=== PATIENT | female | born 1965 | race Caucasian/White ===

== ENCOUNTER 2025-01-25 07:36 | Observation (INO) | payer OTHER, SELFPAY ==
[2025-01-25] VITALS (45 sets, daily range): BP systolic 88–143; BP diastolic 45–71; PULSE 60–83; RESP 12–34; TEMP 36.1–37.1; O2SAT 95–100; BMI 23.6
--- NOTE | 2025-01-25 07:46 | EKG_ITS ---
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
--- NOTE | 2025-01-25 08:01 | ED.ARRPALP ---
HPI - Arrhythmia/Palpitations General Chief Complaint: Arrhythmia/Palpitations Stated Complaint: chest pain, AFIB X 10 days Time Seen by Provider: 01/25/25 07:47 History of Present Illness HPI narrative: 59-year-old female with a history of paroxysmal atrial fibrillation, adrenal insufficiency on hydrocortisone, factor 5 Leiden anticoagulated on Xarelto presenting with numerous symptoms. She reports chest pain that has been intermittent for 10 days. Currently having what she describes as an ache in her chest that has been ongoing for about 7 hours. It is associated with shortness of breath and nausea she has not had any vomiting has not had diaphoresis. Also had palpitations. Also reports this morning she had a fever of 100.8. Not having urinary symptoms has chronic ongoing lower abdominal pain no dysuria. She was seen recently at another hospital and diagnosed with atrial fibrillation, she spontaneously converted at that time. Had not noted any leg swelling or leg pain but does have a history of leg DVT. Patient states she is not a smoker. There is no family history of coronary disease. Has a history of hypertension diabetes and elevated cholesterol all of which have apparently resolved. Related Data Home Medications ?Medication ?Instructions ?Recorded ?Confirmed atorvastatin 40 mg tablet 40 mg PO DAILY 01/25/25 01/25/25 budesonide-formoterol HFA 160 2 puff inhalation BID 01/25/25 01/25/25 mcg-4.5 mcg/actuation aerosol inhaler hydrocortisone 5 mg tablet 5 mg PO .QD [place] 01/25/25 01/25/25 hydrocortisone 5 mg tablet 20 mg PO DAILY [place] 01/25/25 01/25/25 metoprolol tartrate 25 mg tablet 25 mg PO DAILY 01/25/25 01/25/25 mirtazapine 7.5 mg tablet 7.5 mg PO ONCE PM 01/25/25 01/25/25 rivaroxaban 20 mg tablet (Xarelto) 20 mg PO DAILY 01/25/25 01/25/25 Allergies Allergy/AdvReac Type Severity Reaction Status Date / Time metronidazole (From Flagyl) Allergy Verified 01/25/25 07:47 Patient History Social History household members: spouse Smoking Status: Never smoker alcohol intake: never Exam Initial Vital Signs Initial Vital Signs: Vital Signs Pulse Rate 74 01/25/25 07:43 Pulse Oximetry 100 01/25/25 07:43 vital signs are reviewed Const General: cooperative and No acute distress HENAZ Head: normocephalic and atraumatic Face and sinus: face symmetric Mouth: moist mucous membranes Eyes Pupils: PERRL EOM: EOM intact bilaterally Neck Neck: normal visual inspection, supple and No JVD Chest Chest: normal inspection of the chest Resp Effort & Inspection: normal respiratory effort and able to speak in complete sentences Auscultation: clear to auscultation bilaterally Cardio Rate: regular rate Rhythm: regular rhythm Heart Sounds: no murmurs Other: Normal heart rate GI Inspection: normal to inspection Palpation: soft Auscultation: normal bowel sounds Back/Spine/Pelvis Back: normal to inspection Skin General: no rashes or lesions noted and warm Neuro General: patient alert, patient oriented x3 and moves all extremities Speech: speech normal Extrem General: full ROM Psych Appearance: grossly normal Course Orders Ordered: ED Orders 01/25/25 10:07 Trop I [Troponin I] Stat Acetaminophen (Acetaminophen 325 Mg Tablet) 650 mg PO Q6H PRN PRN Reason: Fever/Mild Pain (1-3) Last Admin: 01/25/25 16:59 Dose: 650 mg Documented By: RICHIE Hydrocodone Bitart/Acetaminophen (Hydrocodone/Acet 5/325 Tablet) 1 tab PO Q6H PRN PRN Reason: severe pain Albuterol (Albuterol 2.5 Mg/3 Ml Neb (Adult)) 2.5 mg INH Q2H PRN PRN Reason: Shortness Of Breath Albuterol (Albuterol 2.5 Mg/3 Ml Neb (Adult)) 2.5 mg INH [id number] [facility] Atorvastatin Calcium (Atorvastatin 20 Mg Tablet) 40 mg PO DAILY [facility] Last Admin: 01/25/25 14:42 Dose: 40 mg Documented By: BOY Benzocaine (Benzocaine/Menthol 1 Carmelina Pkt) 1 each PO Q4HR PRN PRN Reason: Sore Throat Benzonatate (Benzonatate 100 Mg Capsule) 100 mg PO TID PRN PRN Reason: Cough Budesonide (Budesonide 0.5 Mg/2 Ml Neb) 0.5 mg INH RTBID [facility] Diltiazem HCl (Diltiazem 30 Mg Tablet) 30 mg PO Q6HR [facility] Last Admin: 01/25/25 17:02 Dose: 30 mg Documented By: RICHIE Ferrous Sulfate (Ferrous Sulfate 325 Mg Tablet) 325 mg PO DAILY [facility] Guaifenesin (Guaifenesin Solution 100 Mg/5 Ml Udc) 100 mg PO Q4HR PRN PRN Reason: Cough Hydrocortisone (Hydrocortisone 10 Mg Tablet) 5 mg PO DAILY@1400 [facility] Last Admin: 01/25/25 14:42 Dose: 5 mg Documented By: BOY Hydrocortisone (Hydrocortisone 10 Mg Tablet) 20 mg PO DAILY [facility] Sodium Chloride (Normal Saline 0.9%) 1,000 mls @ 150 mls/hr IV CONT [facility] Last Infusion: 01/25/25 10:22 Dose: Infused Documented By: Admin: 01/25/25 08:49 Dose: 150 mls/hr Documented By: GAYE Melatonin (Melatonin 3 Mg Tablet) 12 mg PO BEDTIME SHERON Mirtazapine (Mirtazapine 15 Mg Tablet) 7.5 mg PO BEDTIME SHERON Naloxone HCl (Naloxone 0.4 Mg/Ml Vial) 0.2 mg IV Q2MIN PRN PRN Reason: Opiate Reversal Nitroglycerin (Nitroglycerin 0.4 Mg Sl Tab) 0.4 mg SL [id number] PRN PRN Reason: Chest Pain Last Admin: 01/25/25 09:05 Dose: 0.4 mg Documented By: Admin: 01/25/25 08:49 Dose: 0.4 mg Documented By: GAYE Ondansetron HCl (Ondansetron 4 Mg/2 Ml Inj) 4 mg IV Q8HR PRN PRN Reason: Nausea And Vomiting Rivaroxaban (Rivaroxaban 10 Mg Tablet) 20 mg PO DAILY [facility] Last Admin: 01/25/25 15:06 Dose: Not Given Documented By: AKT Discontinued Medications Albuterol (Albuterol 2.5 Mg/3 Ml Neb (Adult)) 2.5 mg INH [id number] [facility] Last Admin: 01/25/25 17:15 Dose: Not Given Documented By: STALIN Diazepam (Diazepam 5 Mg Tablet) 10 mg PO DAILY SHERON Diltiazem HCl (Diltiazem 30 Mg Tablet) 30 mg PO Q6HR [facility] Last Admin: 01/25/25 17:02 Dose: Not Given Documented By: RICHIE Heparin Sodium (Porcine) (Heparin 5,000 Unit/Ml Vial) 5,000 unit SUBCUT BID [facility] Metoprolol Tartrate (Metoprolol Ir 25 Mg Tablet) 25 mg PO DAILY [facility] Last Admin: 01/25/25 16:57 Dose: Not Given Documented By: RICHIE Metoprolol Tartrate (Metoprolol Ir 25 Mg Tablet) 12.5 mg PO BID [facility] Nitroglycerin (Nitroglycerin Oint 1 Inch/Gm Oint...G.) 0.5 inch TOP NOW ONE Stop: 01/25/25 11:29 Last Admin: 01/25/25 11:59 Dose: 0.5 inch Documented By: JOSE Oxybutynin Chloride (Oxybutynin Er 5 Mg Tablet) 10 mg PO DAILY PRN PRN Reason: urinary Reevaluation(s) Reevaluation #1: Pain-free after nitroglycerin. Discussed workup results including positive COVID normal troponin x2. Patient reports that she has been having chest pain with exertion. Shared decision-making employed she would prefer to be admitted and further worked up as an inpatient. Consultations Consultation #1: Discussed with hospitalist, Dr. Posada, accepts admission Vital Signs Vital signs: Vital Signs - 8 hr 01/25/25 10:20 01/25/25 10:20 01/25/25 10:30 Temperature Pulse Rate 65 64 Respiratory Rate 13 14 Blood Pressure 97/55 L Pulse Oximetry 97 96 01/25/25 10:30 01/25/25 10:40 01/25/25 10:40 Temperature Pulse Rate 64 Respiratory Rate 16 Blood Pressure 90/51 L 95/50 L Pulse Oximetry 96 01/25/25 10:50 01/25/25 10:50 01/25/25 11:00 Temperature Pulse Rate 66 Respiratory Rate 13 Blood Pressure 98/54 L 94/50 L Pulse Oximetry 96 01/25/25 11:00 01/25/25 11:15 01/25/25 11:15 Temperature Pulse Rate 70 73 Respiratory Rate 13 16 Blood Pressure 114/60 Pulse Oximetry 97 100 01/25/25 11:20 01/25/25 11:20 01/25/25 11:30 Temperature Pulse Rate 75 Respiratory Rate 14 Blood Pressure 111/61 103/59 L Pulse Oximetry 99 01/25/25 11:30 01/25/25 11:40 01/25/25 11:40 Temperature Pulse Rate 71 70 Respiratory Rate 16 Blood Pressure 104/57 L Pulse Oximetry 98 98 01/25/25 11:50 01/25/25 11:50 01/25/25 11:59 Temperature 98.4 F Pulse Rate 71 72 Respiratory Rate Blood Pressure 97/56 L 97/56 L Pulse Oximetry 98 01/25/25 12:00 01/25/25 12:00 01/25/25 12:10 Temperature Pulse Rate 72 Respiratory Rate 14 Blood Pressure 100/56 L 105/59 L Pulse Oximetry 99 01/25/25 12:10 01/25/25 12:20 01/25/25 12:20 Temperature Pulse Rate 74 75 Respiratory Rate 18 Blood Pressure 103/56 L Pulse Oximetry 98 97 01/25/25 12:30 01/25/25 12:30 01/25/25 12:40 Temperature Pulse Rate 75 Respiratory Rate Blood Pressure 99/56 L 98/56 L Pulse Oximetry 97 01/25/25 12:40 Temperature Pulse Rate 81 Respiratory Rate 16 Blood Pressure Pulse Oximetry 97 MDM - Arrhythmia/Palpitations Lab Data Lab results narrative: No leukocytosis, chemistries unremarkable, normal troponin normal proBNP 01/25/25 08:00 01/25/25 08:00 Labs: Lab Results 01/25/25 01/25/25 01/25/25 Range/Units 08:00 08:21 08:45 WBC 5.7 (4.5-11.0) X10^3/uL RBC 4.02 (4.0-5.2) X10^6/uL Hgb 11.8 L (12.0-16.0) g/dL Hct 34.3 L (36-46) % MCV 85.2 (80-100) fL MCH 29.4 (26-34) PG MCHC 34.4 (30-36) % RDW 13.0 (11.6-14.8) % Plt Count 215 (150-400) X10^3/uL Neut % (Auto) 80.3 H (50-75) % Lymph % (Auto) 10.2 L (25-40) % Garrett % (Auto) 8.5 (3-14) % Eos % (Auto) 0.7 L (2-4) % Baso % (Auto) 0.3 (0-2) % Neut # (Auto) 4600 (1827-7851) /uL Lymph # (Auto) 600 L (0888-1578) /uL Garrett # (Auto) 500 (0-900) /uL Eos # (Auto) 0 (0-450) /uL Baso # (Auto) 0 (0-100) /uL Sodium 139 (137-145) mmol/L Potassium 3.8 (3.4-5.1) mmol/L Chloride 107 (98-107) mmol/L Carbon Dioxide 23 (22-32) mmol/L BUN 16 (7-17) mg/dL Creatinine 0.70 (0.52-1.04) mg/dL Estimated GFR > 60 (>60) mL/min BUN/Creatinine Ratio 22.9 H (6-22) Glucose 119 H (70-99) mg/dL Calcium 8.9 (8.4-10.2) mg/dL Total Bilirubin 0.4 (0.2-1.3) mg/dL AST 43 H (14-36) IU/L ALT 37 H (<35) IU/L Alkaline Phosphatase 78 (38-126) U/L Troponin I < 0.012 (0.01-0.034) ng/mL NT-Pro-B Natriuret Pep 28 (<125) pg/mL Total Protein 7.3 (6.3-8.2) g/dL Albumin 4.3 (3.5-5.0) g/dL Globulin 3.0 (1.7-4.1) g/dL Albumin/Globulin Ratio 1.4 (1.0-2.8) Lipase 74 (23-300) U/L Urine Color Yellow Urine Appearance Clear Urine pH 6.0 (4.5-8.0) Ur Specific Buna <=1.005 (1.000-1.035) Urine Protein Negative (Negative) Urine Glucose (UA) Negative (Negative) g/dL Urine Ketones Negative (NEGATIVE) Urine Occult Blood Negative (Negative) Urine Nitrate Negative (Negative) Urine Bilirubin Negative (NEGATIVE) Urine Urobilinogen 0.2 (0.2) E.U./dL Ur Leukocyte Esterase Negative (NEGATIVE) Urine RBC None seen (0-5/HPF) Urine WBC None seen (0-5/HPF) Ur Squamous Epith Cells None seen (0-5/HPF) Urine Bacteria None seen (None) Ur Culture Indicated? Cult not indicated Vol Urine Centrifuged 10ml (spun) Chlamy pneumoniae PCR Not detected (Not Detect) Adenovirus (PCR) Not detected (Not Detect) B. pertussis DNA (PCR) Not detected (Not Detect) B.parapertussis DNA PCR Not detected (Not Detecte) Coronavirus OC43 (PCR) Not detected (Not Detect) Coronavirus HKU1 (PCR) Not detected (Not Detect) Coronavirus 229E (PCR) Not detected (Not Detect) SARS-CoV-2 (PCR) Detected H (Not Detecte) Coronavirus NL63 (PCR) Not detected (Not Detect) Human Metapneumovir PCR Not detected (Not Detect) Influenza Type A (PCR) Not detected (Not Detect) Influenza Type B (PCR) Not detected (Not Detect) M. pneumoniae (PCR) Not detected (Not Detect) Parainfluenza 1 (PCR) Not detected (Not Detect) Parainfluenza 2 (PCR) Not detected (Not Detect) Parainfluenza 3 (PCR) Not detected (Not Detect) Parainfluenza 4 (PCR) Not detected (Not Detect) RSV (PCR) Not detected (Not Detect) Entero/Rhino (PCR) Not detected (Not Detect) 01/25/25 Range/Units 10:07 WBC (4.5-11.0) X10^3/uL RBC (4.0-5.2) X10^6/uL Hgb (12.0-16.0) g/dL Hct (36-46) % MCV (80-100) fL MCH (26-34) PG MCHC (30-36) % RDW (11.6-14.8) % Plt Count (150-400) X10^3/uL Neut % (Auto) (50-75) % Lymph % (Auto) (25-40) % Garrett % (Auto) (3-14) % Eos % (Auto) (2-4) % Baso % (Auto) (0-2) % Neut # (Auto) (9758-7288) /uL Lymph # (Auto) (6127-7975) /uL Garrett # (Auto) (0-900) /uL Eos # (Auto) (0-450) /uL Baso # (Auto) (0-100) /uL Sodium (137-145) mmol/L Potassium (3.4-5.1) mmol/L Chloride (98-107) mmol/L Carbon Dioxide (22-32) mmol/L BUN (7-17) mg/dL Creatinine (0.52-1.04) mg/dL Estimated GFR (>60) mL/min BUN/Creatinine Ratio (6-22) Glucose (70-99) mg/dL Calcium (8.4-10.2) mg/dL Total Bilirubin (0.2-1.3) mg/dL AST (14-36) IU/L ALT (<35) IU/L Alkaline Phosphatase (38-126) U/L Troponin I < 0.012 (0.01-0.034) ng/mL NT-Pro-B Natriuret Pep (<125) pg/mL Total Protein (6.3-8.2) g/dL Albumin (3.5-5.0) g/dL Globulin (1.7-4.1) g/dL Albumin/Globulin Ratio (1.0-2.8) Lipase (23-300) U/L Urine Color Urine Appearance Urine pH (4.5-8.0) Ur Specific Buna (1.000-1.035) Urine Protein (Negative) Urine Glucose (UA) (Negative) g/dL Urine Ketones (NEGATIVE) Urine Occult Blood (Negative) Urine Nitrate (Negative) Urine Bilirubin (NEGATIVE) Urine Urobilinogen (0.2) E.U./dL Ur Leukocyte Esterase (NEGATIVE) Urine RBC (0-5/HPF) Urine WBC (0-5/HPF) Ur Squamous Epith Cells (0-5/HPF) Urine Bacteria (None) Ur Culture Indicated? Vol Urine Centrifuged Chlamy pneumoniae PCR (Not Detect) Adenovirus (PCR) (Not Detect) B. pertussis DNA (PCR) (Not Detect) B.parapertussis DNA PCR (Not Detecte) Coronavirus OC43 (PCR) (Not Detect) Coronavirus HKU1 (PCR) (Not Detect) Coronavirus 229E (PCR) (Not Detect) SARS-CoV-2 (PCR) (Not Detecte) Coronavirus NL63 (PCR) (Not Detect) Human Metapneumovir PCR (Not Detect) Influenza Type A (PCR) (Not Detect) Influenza Type B (PCR) (Not Detect) M. pneumoniae (PCR) (Not Detect) Parainfluenza 1 (PCR) (Not Detect) Parainfluenza 2 (PCR) (Not Detect) Parainfluenza 3 (PCR) (Not Detect) Parainfluenza 4 (PCR) (Not Detect) RSV (PCR) (Not Detect) Entero/Rhino (PCR) (Not Detect) Imaging Data CT scan - chest: My Impression: Independently reviewed CT angio chest, no acute findings Radiologist's Impresson: [address] [address] [address] Scan Report Signed Patient: Magda Sykes MR#: [id number] : 1965 Acct:[id number] Age/Sex: 59 / F Date of Service: 01/25/25 Loc: ED Accession Number: [id number] Procedure: CT angio chest PE protocol Ordering Provider: Chris Kent MD PROCEDURE: CT ANGIO CHEST PE PROTOCOL INDICATIONS: chest pain TECHNIQUE: After the administration of intravenous contrast, 2 mm thick sections acquired from the pulmonary apices to the posterior costophrenic angles. 3-dimensional maximum intensity projection (MIP) coronal and sagittal reformats were then acquired through the thorax. For radiation dose reduction, the following was used: automated exposure control, adjustment of mA and/or kV according to patient size. COMPARISON: None. FINDINGS: Image quality: Diagnostic. Pulmonary arteries: Pulmonary arteries are normal in size, and demonstrate no intraluminal filling defects to suggest central pulmonary embolism. Lower Neck: No enlarged lymph nodes. Thyroid: No thyroid nodules which require sonographic follow up, per consensus guidelines. Axillae: No enlarged lymph nodes. Chest Wall: Unremarkable. Bones: Unremarkable. Lungs and Pleura: No pneumothorax or pleural effusions. Calcified granuloma. Pleural parenchymal band in the lingula. Heart: Heart size is normal. No pericardial effusion. Thoracic Vessels: No aortic aneurysm. Mediastinum and Carlie: No enlarged lymph nodes. Esophagus: No wall thickening. No hiatal hernia. Upper Abdomen: Visualized upper abdomen solid organs and bowel loops appear normal. IMPRESSION: No pulmonary embolus. No acute cardiopulmonary process. Dictated by: Chacho Guzman M.D. on 01/25/2025 at 8:47 Approved by: Chacho Guzman M.D. on 01/25/2025 at 8:48 ECG Data Attestation: I personally reviewed and interpreted this ECG as follows: (Normal sinus rhythm at [address] segment changes no previous infarction normal intervals) MDM Narrative Medical decision making narrative: 59-year-old female with factor 5 Leiden history of thromboembolic disease presenting with chest pain. She is not febrile, does not have ischemic EKG changes and has a normal troponin. Has been having multiple episodes of chest pain recently. CT angio is negative for pulmonary embolism or infiltrate. Heart score is 3, however given her recurrent chest pain it was my impression that it would be wiser to hospitalize her. Additionally she did have resolution of her chest pain with nitrates. She will be admitted to the hospitalist service. Discharge Plan Departure Patient Disposition: Admitted as Observation Clinical Impression: COVID-19 virus infection Chest pain Qualifiers: Chest pain type: unspecified Qualified Code(s): R07.9 - Chest pain, unspecified Admit Date/Time: 01/25/25 12:47 Admit Provider: Mateo Douglas
[2025-01-25 08:12] LABS: Add Manual Diff / Slide Review NO; Hematocrit 34.3 % (36-46); Hemoglobin 11.8 g/dL (12.0-16.0); Lymphocytes Absolute Auto 600 /uL (1100-4500); Mean Corpuscular HGB Conc 34.4 % (30-36); Mean Corpuscular Hemoglobin 29.4 PG (26-34); Mean Corpuscular Volume 85.2 fL (80-100); Platelet Count 215 X10^3/uL (150-400)
[2025-01-25 08:25] LABS: Alanine Aminotransferase 37 IU/L (<35); Albumin 4.3 g/dL (3.5-5.0); Albumin Globulin Ratio 1.4 (1.0-2.8); Alkaline Phosphatase 78 U/L (38-126); Blood Urea Nitrogen 16 mg/dL (7-17); Calcium 8.9 mg/dL (8.4-10.2); Carbon Dioxide 23 mmol/L (22-32); Chloride 107 mmol/L (98-107); Estimated Glomerular Filt Rate > 60 mL/min (>60); Globulin 3.0 g/dL (1.7-4.1); Glucose 119 mg/dL (70-99); HEMOLYSIS < 15 (0-50); Lipase 74 U/L (23-300); Potassium 3.8 mmol/L (3.4-5.1); Sodium 139 mmol/L (137-145); Total Protein 7.3 g/dL (6.3-8.2)
[2025-01-25 08:34] LABS: NT-proBNP (BNP-Adult 18+) 28 pg/mL (<125)
[2025-01-25 08:36] LABS: Troponin I < 0.012 ng/mL (0.01-0.034)
[2025-01-25] MEDS: SODIUM CHLORIDE 0.9% 1,000 ML 150 ML IV (08:49)
[2025-01-25] MEDS: NITROGLYCERIN 0.4 MG SL TAB SL ×2 (08:49→09:05)
--- NOTE | 2025-01-25 09:27 | PC.NURSE ---
Patient reports pain in left chest dissipated to a 0/10 after second dose of nitro.
[2025-01-25 09:46] LABS: Coronavirus NL 63 Not Detected (Not Detect)
[2025-01-25 10:07] LABS: SARS- CoV-2 Detected (Not Detecte)
[2025-01-25 10:38] LABS: Appearance Urine UA CLEAR; Bilirubin Urine UA NEGATIVE (NEGATIVE); Color Urine UA YELLOW; Glucose Urine UA NEGATIVE (Negative); Ketones Urine UA NEGATIVE (NEGATIVE); Leukocyte Esterase Urine UA NEGATIVE (NEGATIVE); Nitrite Urine UA NEGATIVE (Negative); Occult Blood Urine UA NEGATIVE (Negative); Protein Urine UA NEGATIVE (Negative); Specific Gravity Urine UA <=1.005 (1.000-1.035); Urobilinogen Urine UA 0.2 E.U./dL (0.2)
[2025-01-25 10:42] LABS: pH Urine UA 6.0 (4.5-8.0)
[2025-01-25 10:44] LABS: Culture Indicated Urine Cult Not Indicated
[2025-01-25 10:51] LABS: Troponin I < 0.012 ng/mL (0.01-0.034)
[2025-01-25] MEDS: NITROGLYCERIN OINT 1 INCH/GM OINT...G. 0.5 INCH TOP (11:59)
--- NOTE | 2025-01-25 13:52 | PM.HP.1 ---
History of Present Illness History of Present Illness Date Patient Seen: 01/25/25 Time Patient Seen: 14:30 Chief complaint: chest pain, AFIB X 10 days Narrative: Patient was a 59-year-old female with a recent diagnosis of atrial fibrillation. She was on long-term anticoagulation for factor 5. She was had palpitations, fatigue, and dyspnea with exertion for the last 10 days. She was started on metoprolol 25 b.i.d. but has not tolerated this medication very well. This is caused more fatigue. She did have some nondescript left chest discomfort at rest today. She was given nitroglycerin which may have improve this in the ED. She did have fairly extensive cardiac evaluation before moving from [place] 2 years ago. This included normal stress test. She does have a 1st time cardiology evaluation scheduled with [facility] in [place]. This is with Dr. Leonardo Mcguire. In the ED, she was found to have atrial fibrillation. She was not had an echo to date. She was and lives near [place] with her . He was in the room and participated in our discussion today. [facility] Social History household members: spouse Smoking Status: Never smoker alcohol intake: never Meds Home Medications and Allergies Home Medications ?Medication ?Instructions ?Recorded ?Confirmed ?Type atorvastatin 40 mg tablet 40 mg PO DAILY 01/25/25 01/25/25 History budesonide-formoterol HFA 160 2 puff inhalation BID 01/25/25 01/25/25 History mcg-4.5 mcg/actuation aerosol inhaler hydrocortisone 5 mg tablet 5 mg PO .QD [facility] 01/25/25 01/25/25 History hydrocortisone 5 mg tablet 20 mg PO DAILY [facility] 01/25/25 01/25/25 History metoprolol tartrate 25 mg tablet 25 mg PO DAILY 01/25/25 01/25/25 History mirtazapine 7.5 mg tablet 7.5 mg PO ONCE PM 01/25/25 01/25/25 History rivaroxaban 20 mg tablet (Xarelto) 20 mg PO DAILY 01/25/25 01/25/25 History Allergies Allergy/AdvReac Type Severity Reaction Status Date / Time metronidazole (From Flagyl) Allergy Verified 01/25/25 07:47 Review of Systems Review of Systems Narrative: All else reviewed and otherwise unremarkable except as noted in the history and physical. Exam Vital Signs (past 8 hours): - 01/25/25 07:43 01/25/25 07:44 01/25/25 07:44 Temperature Pulse Rate 74 71 Respiratory Rate Blood Pressure 129/71 Pulse Oximetry 100 99 Oxygen Delivery Method 01/25/25 07:46 01/25/25 08:00 01/25/25 08:06 Temperature 98.5 F Pulse Rate 68 74 71 Respiratory Rate 16 23 25 H Blood Pressure 143/70 H Pulse Oximetry 98 98 99 Oxygen Delivery Method Room Air 01/25/25 08:06 01/25/25 08:30 01/25/25 08:30 Temperature Pulse Rate 67 Respiratory Rate 21 Blood Pressure 126/67 106/59 L Pulse Oximetry 98 Oxygen Delivery Method 01/25/25 08:49 01/25/25 08:56 01/25/25 08:56 Temperature Pulse Rate 78 79 Respiratory Rate 23 Blood Pressure 106/67 111/60 Pulse Oximetry 97 Oxygen Delivery Method 01/25/25 08:59 01/25/25 08:59 01/25/25 09:00 Temperature Pulse Rate 78 76 Respiratory Rate 27 H 21 Blood Pressure 103/57 L Pulse Oximetry 95 95 Oxygen Delivery Method 01/25/25 09:00 01/25/25 09:05 01/25/25 09:06 Temperature Pulse Rate 78 Respiratory Rate Blood Pressure 101/56 L 101/56 L 109/58 L Pulse Oximetry Oxygen Delivery Method 01/25/25 09:06 01/25/25 09:10 01/25/25 09:10 Temperature Pulse Rate 83 78 Respiratory Rate 25 H 12 Blood Pressure 90/54 L Pulse Oximetry 95 95 Oxygen Delivery Method 01/25/25 09:12 01/25/25 09:12 01/25/25 09:13 Temperature Pulse Rate 76 74 Respiratory Rate 20 25 H Blood Pressure 93/52 L Pulse Oximetry 96 96 Oxygen Delivery Method 01/25/25 09:13 01/25/25 09:15 01/25/25 09:15 Temperature Pulse Rate 73 Respiratory Rate 34 H Blood Pressure 91/55 L 88/50 L Pulse Oximetry 96 Oxygen Delivery Method 01/25/25 09:18 01/25/25 09:18 01/25/25 09:20 Temperature Pulse Rate 71 Respiratory Rate 19 Blood Pressure 95/52 L 95/50 L Pulse Oximetry 97 Oxygen Delivery Method 01/25/25 09:20 01/25/25 09:25 01/25/25 09:25 Temperature Pulse Rate 69 68 Respiratory Rate 23 34 H Blood Pressure 101/56 L Pulse Oximetry 97 99 Oxygen Delivery Method 01/25/25 09:30 01/25/25 09:30 01/25/25 09:40 Temperature Pulse Rate 67 Respiratory Rate 16 Blood Pressure 94/50 L 97/56 L Pulse Oximetry 98 Oxygen Delivery Method 01/25/25 09:40 01/25/25 09:50 01/25/25 09:50 Temperature Pulse Rate 72 68 Respiratory Rate 13 24 Blood Pressure 96/53 L Pulse Oximetry 99 100 Oxygen Delivery Method 01/25/25 10:00 01/25/25 10:00 01/25/25 10:10 Temperature Pulse Rate 65 Respiratory Rate 15 Blood Pressure 94/52 L 97/52 L Pulse Oximetry 99 Oxygen Delivery Method 01/25/25 10:10 01/25/25 10:20 01/25/25 10:20 Temperature Pulse Rate 68 65 Respiratory Rate 12 13 Blood Pressure 97/55 L Pulse Oximetry 99 97 Oxygen Delivery Method 01/25/25 10:30 01/25/25 10:30 01/25/25 10:40 Temperature Pulse Rate 64 Respiratory Rate 14 Blood Pressure 90/51 L 95/50 L Pulse Oximetry 96 Oxygen Delivery Method 01/25/25 10:40 01/25/25 10:50 01/25/25 10:50 Temperature Pulse Rate 64 66 Respiratory Rate 16 13 Blood Pressure 98/54 L Pulse Oximetry 96 96 Oxygen Delivery Method 01/25/25 11:00 01/25/25 11:00 01/25/25 11:15 Temperature Pulse Rate 70 73 Respiratory Rate 13 16 Blood Pressure 94/50 L Pulse Oximetry 97 100 Oxygen Delivery Method 01/25/25 11:15 01/25/25 11:20 01/25/25 11:20 Temperature Pulse Rate 75 Respiratory Rate 14 Blood Pressure 114/60 111/61 Pulse Oximetry 99 Oxygen Delivery Method 01/25/25 11:30 01/25/25 11:30 01/25/25 11:40 Temperature Pulse Rate 71 70 Respiratory Rate 16 Blood Pressure 103/59 L Pulse Oximetry 98 98 Oxygen Delivery Method 01/25/25 11:40 01/25/25 11:50 01/25/25 11:50 Temperature Pulse Rate 71 Respiratory Rate Blood Pressure 104/57 L 97/56 L Pulse Oximetry 98 Oxygen Delivery Method 01/25/25 11:59 01/25/25 12:00 01/25/25 12:00 Temperature 98.4 F Pulse Rate 72 72 Respiratory Rate 14 Blood Pressure 97/56 L 100/56 L Pulse Oximetry 99 Oxygen Delivery Method 01/25/25 12:10 01/25/25 12:10 01/25/25 12:20 Temperature Pulse Rate 74 Respiratory Rate Blood Pressure 105/59 L 103/56 L Pulse Oximetry 98 Oxygen Delivery Method 01/25/25 12:20 01/25/25 12:30 01/25/25 12:30 Temperature Pulse Rate 75 75 Respiratory Rate 18 Blood Pressure 99/56 L Pulse Oximetry 97 97 Oxygen Delivery Method 01/25/25 12:40 01/25/25 12:40 Temperature Pulse Rate 81 Respiratory Rate 16 Blood Pressure 98/56 L Pulse Oximetry 97 Oxygen Delivery Method Oxygen Delivery Method Room Air Narrative Exam Narrative: NAD, alert and oriented, fluent speech, calm. Normocephalic skull, EOMI, anicteric sclera, symmetric pupils. Oropharynx unremarkable, no droop. Neck supple, midline trachea, no adenopathy. Lungs clear, normal rate and effort. Heart irregular, no murmur gallop or rub. Abdomen is soft, non distended and non tender. Extremities are free of edema. Skin is free of rash or lesions. Joints are not swollen or deformed. Judgment appears to be normal. Objective ECG Impression: Intervals [place] Rate: 71 P: 29 MA: 158 QRS: 17 QRSD: 86 T: 49 QT: 390 QTc: 423 Interpretive Statements Normal sinus rhythm Imaging CT scan - chest: Radiologist's impression: No pulmonary embolus. No acute cardiopulmonary process. Labs 01/25/25 08:00 01/25/25 08:00 Labs: Laboratory Results - last 24 hr 01/25/25 01/25/25 01/25/25 08:00 08:21 08:45 WBC 5.7 RBC 4.02 Hgb 11.8 L Hct 34.3 L MCV 85.2 MCH 29.4 MCHC 34.4 RDW 13.0 Plt Count 215 Neut % (Auto) 80.3 H Lymph % (Auto) 10.2 L [place] % (Auto) 8.5 Eos % (Auto) 0.7 L Baso % (Auto) 0.3 Neut # (Auto) 4600 Lymph # (Auto) 600 L [place] # (Auto) 500 Eos # (Auto) 0 Baso # (Auto) 0 Sodium 139 Potassium 3.8 Chloride 107 Carbon Dioxide 23 BUN 16 Creatinine 0.70 Estimated GFR > 60 BUN/Creatinine Ratio 22.9 H Glucose 119 H Calcium 8.9 Total Bilirubin 0.4 AST 43 H ALT 37 H Alkaline Phosphatase 78 Troponin I < 0.012 NT-Pro-B Natriuret Pep 28 Total Protein 7.3 Albumin 4.3 Globulin 3.0 Albumin/Globulin Ratio 1.4 Lipase 74 Urine Color Yellow Urine Appearance Clear Urine pH 6.0 Ur Specific [place] <=1.005 Urine Protein Negative Urine Glucose (UA) Negative Urine Ketones Negative Urine Occult Blood Negative Urine Nitrate Negative Urine Bilirubin Negative Urine Urobilinogen 0.2 Ur Leukocyte Esterase Negative Urine RBC None seen Urine WBC None seen Ur Squamous Epith Cells None seen Urine Bacteria None seen Ur Culture Indicated? Cult not indicated Vol Urine Centrifuged 10ml (spun) Chlamy pneumoniae PCR Not detected Adenovirus (PCR) Not detected B. pertussis DNA (PCR) Not detected B.parapertussis DNA PCR Not detected Coronavirus OC43 (PCR) Not detected Coronavirus HKU1 (PCR) Not detected Coronavirus 229E (PCR) Not detected SARS-CoV-2 (PCR) Detected H Coronavirus NL63 (PCR) Not detected Human Metapneumovir PCR Not detected Influenza Type A (PCR) Not detected Influenza Type B (PCR) Not detected M. pneumoniae (PCR) Not detected Parainfluenza 1 (PCR) Not detected Parainfluenza 2 (PCR) Not detected Parainfluenza 3 (PCR) Not detected Parainfluenza 4 (PCR) Not detected RSV (PCR) Not detected Entero/Rhino (PCR) Not detected 01/25/25 10:07 WBC RBC Hgb Hct MCV MCH MCHC RDW Plt Count Neut % (Auto) Lymph % (Auto) [place] % (Auto) Eos % (Auto) Baso % (Auto) Neut # (Auto) Lymph # (Auto) [place] # (Auto) Eos # (Auto) Baso # (Auto) Sodium Potassium Chloride Carbon Dioxide BUN Creatinine Estimated GFR BUN/Creatinine Ratio Glucose Calcium Total Bilirubin AST ALT Alkaline Phosphatase Troponin I < 0.012 NT-Pro-B Natriuret Pep Total Protein Albumin Globulin Albumin/Globulin Ratio Lipase Urine Color Urine Appearance Urine pH Ur Specific [place] Urine Protein Urine Glucose (UA) Urine Ketones Urine Occult Blood Urine Nitrate Urine Bilirubin Urine Urobilinogen Ur Leukocyte Esterase Urine RBC Urine WBC Ur Squamous Epith Cells Urine Bacteria Ur Culture Indicated? Vol Urine Centrifuged Chlamy pneumoniae PCR Adenovirus (PCR) B. pertussis DNA (PCR) B.parapertussis DNA PCR Coronavirus OC43 (PCR) Coronavirus HKU1 (PCR) Coronavirus 229E (PCR) SARS-CoV-2 (PCR) Coronavirus NL63 (PCR) Human Metapneumovir PCR Influenza Type A (PCR) Influenza Type B (PCR) M. pneumoniae (PCR) Parainfluenza 1 (PCR) Parainfluenza 2 (PCR) Parainfluenza 3 (PCR) Parainfluenza 4 (PCR) RSV (PCR) Entero/Rhino (PCR) Assessment & Plan Assessment & Plan narrative: 1. Atrial fibrillation with rapid response. Active. 2. Covid URI without hypoxia. 3. Adrenal insufficiency, active. 4. Factor 5, active. PLAN: -Switch to diltiazem 30 PO Q6 -No treatment for Covid -Stress dose steroids -Continue Xarelto Anticipate 1 MN in the hospital, observation status. Met with her . Time-Based Coding :: 35 min spent with patient and on the chart (including review of chart, obtaining history, exam, reviewing outside data, placing orders, documenting exam and treatment plan, and counseling patient) on 01/25. Quality MIPS - Admit I confirm the patient?s Advance Care Plan is present, Code status is documented, Surrogate decision maker is in patient?s record [If Yes, STOP here]: Yes MIPS - Meds 'Current medications' to include all prescriptions, [id number] products, herbals, cannabis/cannabidiol products, and vitamin/mineral/dietary (nutritional) supplements. I have utilized all available resources to obtain, update, or review the patient?s current medications. [If Yes, STOP here]: Yes
[2025-01-25] MEDS: ATORVASTATIN 20 MG TABLET 40 MG PO (14:42)
[2025-01-25] MEDS: HYDROCORTISONE 10 MG TABLET 5 MG PO (14:42)
[2025-01-25 14:59] LABS: Troponin I < 0.012 ng/mL (0.01-0.034)
--- NOTE | 2025-01-25 15:13 | DI.ECHO.S_ITS ---
[facility] +---------+ Hospital : : [address] : : [place] : : [id number] : : Phone: [phone] Echocardiogram Report + + :Name: ALLAN ANTONY Study Date: 01/25/2025 Height: 70 in : :Hospital ReadingLocation: Weight: 165 lb: : Gender: Female BSA: 1.9 m2 : :: 1965 Age: 59 yrs BP: 98/56 mmHg: :Reason For Study: ATRAIL FIBRILLATION : :Ordering Physician: ADRIANO, : :ROLANDO Galeana Performed By: Krista Cates : :Referring: ROLANDO [place] : + + Interpretation Summary The patient was in sinus rhythm with heart rates between 61-68 bpm during the exam. The ejection fraction is estimated to be 60-65%. Normal diastolic function. The right ventricle is normal in size and function. No significant valvular abnormalities. Pulmonary artery pressures cannot be estimated because of the lack of a measurable TR jet velocity but the IVC suggests a CVP of around 3 mmHg. Procedure: A two-dimensional transthoracic echocardiogram with color flow and Doppler was performed. The study quality was technically adequate. There is no prior echocardiogram noted for this patient. The patient was in sinus rhythm with heart rates between 61-68 bpm during the exam. Left Ventricle: The left ventricle is normal in size and wall thickness. The ejection fraction is estimated to be 60-65%. Normal diastolic function. Right Ventricle: The right ventricle is normal in size and function. Atria: The left atrial size is normal. Right atrial size is normal. There is no Doppler evidence for an interatrial shunt. Mitral Valve: The mitral valve leaflets appear to open well. There is trace mitral regurgitation. Aortic Valve: The aortic valve is trileaflet. The aortic valve is mildly calcified. There is mildly reduced leaflet mobility. There is mild aortic valve sclerosis. The peak aortic velocity is 1.82 m/sec. The aortic valve mean gradient is 7 mmHg. There is no hemodynamically significant valvular aortic stenosis. No aortic regurgitation is present. Tricuspid Valve: The tricuspid valve leaflets are thin and pliable. There is trace tricuspid regurgitation. Pulmonary artery pressures cannot be estimated because of the lack of a measurable TR jet velocity but the IVC suggests a CVP of around 3 mmHg. Pulmonic Valve: The pulmonic valve leaflets are thin and pliable; valve motion is normal. There is no pulmonic valvular regurgitation. Great Vessels: The aortic root is normal size. The IVC is of normal diameter and collapses greater than 50% with a sniff. This suggests a low right atrial pressure of 3 mm Hg. Pericardium/ Pleura There is no pericardial effusion. There is no pleural effusion. MMode/2D Measurements & Calculations LVIDd: 5.0 cm LVOT diam: 2.1 cm LVIDs: 3.4 cm Ao root diam: 3.5 cm FS: 33.0 % asc Aorta Diam: 3.4 cm IVSd: 0.78 cm Ao Arch Diam (Prox Trans): 3.2 cm LVPWd: 0.85 cm LV nicole. diameter/BSA (cm/m^2): 2.6 LV sys. diameter/BSA (cm/m^2): 1.7 LA A2 area: 20.9 cm2 RA long axis: 5.1 cm LA A4 area: 18.7 cm2 RA area: 15.8 cm2 LA length (vol): 5.1 cm RA vol: 42.2 ml LA vol: 65.0 ml RA : 21.9 ml/m2 LA vol index: 33.8 ml/m2 IVC diam: 1.2 cm RVD1 (basal): 3.5 cm RVD2 (mid): 3.3 cm TAPSE: 2.0 cm Doppler Measurements & Calculations Ao V2 max: 182.8 cm/sec LVOT Max Darell: 86.1 cm/sec Ao V2 mean: 124.3 cm/sec LV V1 max P.0 mmHg Ao max P.4 mmHg LV V1 VTI: 18.2 cm Ao mean P.0 mmHg ELIAN(I,D): 1.8 cm2 Ao V2 VTI: 34.4 cm ELIAN(V,D): 1.6 cm2 sev ratio: 0.53 ELIAN indexed to BSA (cm^2/m^2): 0.92 MV E max darell: 106.5 cm/sec PA V2 max: 102.8 cm/sec MV A max darell: 74.3 cm/sec PA V2 mean: 71.7 cm/sec MV E/A: 1.4 PA mean P.3 mmHg Med Peak E' Darell: 6.9 cm/sec PA pr(Accel): 13.1 mmHg E/E' med: 15.4 Lat Peak E' Darell: 10.4 cm/sec E/E' lat: 10.2 E/e' average: 12.8 MV dec time: 0.19 sec Pulm A Revs Darell: 34.1 cm/sec SV(LVOT): 60.6 ml Pulm A Revs Dur: 0.10 sec Reading Physician:05:03 PM
[2025-01-25] MEDS: ACETAMINOPHEN 325 MG TABLET 650 MG PO (16:59)
[2025-01-25] MEDS: BUDESONIDE 0.5 MG/2 ML NEB INH (19:31)
[2025-01-25] MEDS: ALBUTEROL 2.5 MG/3 ML NEB (ADULT) INH (19:31)
[2025-01-25] MEDS: MELATONIN 3 MG TABLET 12 MG PO (21:09)
[2025-01-25] MEDS: MIRTAZAPINE 15 MG TABLET 7.5 MG PO (21:09)
[2025-01-25] MEDS: SODIUM CHLORIDE 0.9% FLUSH 10 ML IV (21:10)
[2025-01-25 22:37] LABS: Troponin I < 0.012 ng/mL (0.01-0.034)
[2025-01-26] VITALS (7 sets, daily range): BP systolic 100–127; BP diastolic 61–68; PULSE 68–81; RESP 16–18; TEMP 35.9–36.8; O2SAT 94–100
--- NOTE | 2025-01-26 00:26 | PC.NURSE ---
Patient is alert and oriented. Breath sounds CTA with RA sat of 99%. HRR w/telemetry reading of SR. Initial BP was 103/57 and now at 0000 was 116/45 and patient declined scheduled Diltiazem. Denied nausea. BT present and reports having had small BM in the a.m. yesterday. Is voiding without dysuria, frequency or urgency per her report. Is independent with mobility. Denied pain. Fall risk score is low but discussed importance of sitting on edge of bed prior to getting up and verbalized understanding to call for assist if feeling dizzy, lightheaded or weak. Is on isolation due to being COVID positive.
[2025-01-26 05:28] LABS: Add Manual Diff / Slide Review NO; Hematocrit 32.2 % (36-46); Hemoglobin 11.1 g/dL (12.0-16.0); Lymphocytes Absolute Auto 900 /uL (1100-4500); Mean Corpuscular HGB Conc 34.3 % (30-36); Mean Corpuscular Hemoglobin 29.4 PG (26-34); Mean Corpuscular Volume 85.5 fL (80-100); Platelet Count 186 X10^3/uL (150-400)
[2025-01-26 05:38] LABS: Blood Urea Nitrogen 12 mg/dL (7-17); Calcium 8.8 mg/dL (8.4-10.2); Carbon Dioxide 23 mmol/L (22-32); Chloride 107 mmol/L (98-107); Estimated Glomerular Filt Rate > 60 mL/min (>60); Glucose 95 mg/dL (70-99); HEMOLYSIS 17 (0-50); Potassium 4.0 mmol/L (3.4-5.1); Sodium 138 mmol/L (137-145)
[2025-01-26] MEDS: RIVAROXABAN 10 MG TABLET 20 MG PO (06:49)
[2025-01-26] MEDS: HYDROCORTISONE 10 MG TABLET 20 MG PO (06:49)
[2025-01-26] MEDS: ALBUTEROL 2.5 MG/3 ML NEB (ADULT) INH (08:03)
[2025-01-26] MEDS: BUDESONIDE 0.5 MG/2 ML NEB INH (08:03)
[2025-01-26] MEDS: SODIUM CHLORIDE 0.9% FLUSH 10 ML IV (08:57)
[2025-01-26] MEDS: ATORVASTATIN 20 MG TABLET 40 MG PO (08:57)
--- NOTE | 2025-01-26 09:54 | PC.NURSE ---
[id number] Report received from nightsmift RN. Patient AAO x's 3. Able to SHERIFF. Denies pain, numbness and tingling. Call light wiithin reach and bed in lowest position. [id number] MD aware of patient potassium level. Orders to be placed.
--- NOTE | 2025-01-26 10:58 | CM.DANOTE ---
Initial DCP Assessment Note. Review EMR and PT Interview. Met with patient at bedside to discuss discharge needs.PT is alert x 4 sitting up in bed.Room air. No acute distress. Patient lives independently with in their own home. PT's friend, Annel Gonzalez, will be transporting PT home upon discharge. Payor:? [facility] PCP: Dr. Yahaira Barbosa, [facility]. Summary & Plan:?59 y/o female arrived to ED c/o chest pain, headache, SOB, and nausea. Admitted OBS, Chest Pain and Covid. Plan: Switch to Diltiazem 30 PO Q 6 hours, No treatment for COVID, Stress dose stroids, and continue Xarelto. Active discharge home order. 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 Yahaira Barbosa, [facility] Insurance [facility] Advance Directives? No History Provided By Patient Has Patient been No admitted in last 30 days? Comment SS Home Household Members spouse,significant other Type of Drives own vehicle transporation used prior to admit Independent with ADL Yes 's Is patient alert and Yes oriented? Caregiver for No Another Barriers to No Discharge Discharge Plan Home Transportation Friend: Annel Gonzalez will pick her up. Arrangement Referrals Initiated None needed Review Status In Process Please Provide Date 01/26/25 Initial DC Assessment Was Performed Next Review Type Continued Stay Review
--- NOTE | 2025-01-26 11:05 | PM.DS.1 ---
History of Present Illness History of Present Illness Chief complaint: chest pain, AFIB X 10 days Narrative: Patient was a 59-year-old female with a recent diagnosis of atrial fibrillation. She was on long-term anticoagulation for factor 5. She was had palpitations, fatigue, and dyspnea with exertion for the last 10 days. She was started on metoprolol 25 b.i.d. but has not tolerated this medication very well. This is caused more fatigue. She did have some nondescript left chest discomfort at rest today. She was given nitroglycerin which may have improve this in the ED. She did have fairly extensive cardiac evaluation before moving from [place] 2 years ago. This included normal stress test. She does have a 1st time cardiology evaluation scheduled with [facility] in [place]. This is with Dr. Leonardo Mcguire. In the ED, she was found to have atrial fibrillation. She was not had an echo to date. She was and lives near [place] with her . He was in the room and participated in our discussion today. Discharge Providers Provider Date of admission: 01/25/25 12:47 Discharge Date: 01/26/25 Consults: None. Discharge provider: Mtaeo Douglas MD Summary Hospital Course Discharge Diagnosis: 1. PAF, improved 2. Factor 5, on supervisor long goods anticoagulation. 3. Covid URI without hypoxia. 4. Adrenal insufficiency (pituitary tumor remotely), active. Hospital Course: She was admitted with fatigue relating to atrial fibrillation which is paroxysmal, COVID without hypoxia, and possibly metoprolol. We stopped her metoprolol and started her on diltiazem which she seemed to tolerate. He has an outpatient follow up in Cardiology next Thursday. This is with Dr. Mcguire at [facility]. She used stress dose steroids for 2 days and we will returned to normal dosing which is her customary practice. I discussed a potential interaction between diltiazem and her Xarelto which is unusual. Nonetheless she will watch for signs of bleeding and this can be further addressed with Cardiology next week. Status at Discharge Cognitive/behavioral status at discharge: oriented Functional status at discharge: independent ambulation Overall status at discharge: patient is back to baseline Time Spent with Patient Time spent: Greater than 30 minutes Exam Vital Signs (past 8 hours): - 01/26/25 06:00 01/26/25 06:13 01/26/25 08:03 Temperature 97.7 F Pulse Rate 77 77 78 Respiratory Rate 16 18 Blood Pressure 127/61 127/61 Pulse Oximetry 96 97 Oxygen Delivery Method Room Air Oxygen Flow Rate 01/26/25 08:53 Temperature 96.7 F L Pulse Rate 81 Respiratory Rate 16 Blood Pressure 100/65 Pulse Oximetry 97 Oxygen Delivery Method Oxygen Flow Rate 0 Oxygen Delivery Method Room Air Oxygen Flow Rate 0 Narrative Exam Narrative: NAD, alert and oriented. Fluent speech. Lungs are clear, normal rate and effort. Heart is irregular, no murmur gallop or rub. Abdomen is soft, non distended. Extremities are free of edema. Objective ECG Impression: Rate: 71 P: 29 MI: 158 QRS: 17 QRSD: 86 T: 49 QT: 390 QTc: 423 Interpretive Statements Normal sinus rhythm Imaging Chest CTA:: Radiologist's impression: No pulmonary embolus. No acute cardiopulmonary process. Labs 01/26/25 05:15 01/26/25 05:15 Labs: Laboratory Results - last 24 hr 01/25/25 01/25/25 01/26/25 14:22 22:06 05:15 WBC 3.3 L RBC 3.77 L Hgb 11.1 L Hct 32.2 L MCV 85.5 MCH 29.4 MCHC 34.3 RDW 12.7 Plt Count 186 Neut % (Auto) 49.8 L D Lymph % (Auto) 29.0 [place] % (Auto) 18.2 H Eos % (Auto) 1.6 L Baso % (Auto) 1.4 Neut # (Auto) 1600 Lymph # (Auto) 900 L [place] # (Auto) 600 Eos # (Auto) 100 Baso # (Auto) 0 Sodium 138 Potassium 4.0 Chloride 107 Carbon Dioxide 23 BUN 12 Creatinine 0.65 Estimated GFR > 60 BUN/Creatinine Ratio 18.5 Glucose 95 Calcium 8.8 Troponin I < 0.012 < 0.012 [facility] Social History household members: spouse and significant other Smoking Status: Never smoker alcohol intake: never Discharge Assessment & Plan Assessment and Plan Assessment: 1. Atrial fibrillation with rapid response. Improved. 2. Covid URI without hypoxia. Stable. 3. Adrenal insufficiency, active. 4. Factor 5, active. Plan of Treatment: Discharge home on Diltiazen CD 120 QD. TOD Mcguire PH cardiology on 01/31 as scheduled. Had a normal stress test about 2 years ago when she was residing in [place]. Discharge Plan Discharge Plan Patient Disposition: Home Provider Discharge Comment: Stable for discharge home with close cardiology follow up as scheduled, Dr. Mcguire at [facility]. Discharge orders & Medications Prescriptions: New diltiazem HCl 120 mg capsule,extended release 24hr 120 mg PO DAILY Qty: 30 1RF Continued atorvastatin 40 mg tablet 40 mg PO DAILY budesonide-formoterol 160-4.5 mcg/actuation HFA aerosol inhaler 2 puff INHALATION BID hydrocortisone 5 mg tablet 20 mg PO DAILY mirtazapine 7.5 mg tablet 7.5 mg PO ONCE PM Xarelto 20 mg tablet 20 mg PO DAILY hydrocortisone 5 mg tablet 5 mg PO .QD Rx Instructions: TAKE ONE TABLET BY MOUTH AT 1400 DAILY Discontinued metoprolol tartrate 25 mg tablet 25 mg PO DAILY Discharge Health Status Multidrug resistant organism: No MDRO Diet/Activity/Treatments Diet: Diet as Tolerated and Regular Visit Report/Discharge Packet Instructions: DI for Atrial Fibrillation Stand Alone Forms: Patient Portal/API Discharge Data Attending Provider: Mateo Douglas Admit Date/Time: 01/25/25 12:47
--- NOTE | 2025-01-26 11:09 | PC.NURSE ---
Addendum entered by Camille Bryan RN 01/26/25 13:05: 1245 Patient off unit, belongings in possession. Original Note: 1028 MD Douglas at the bedside, updating patient on plan of care. 1109 Discharge instructions provided to patient. Patient signed paperwork, verbalized understanding. IV removed and bandaid applied.
[2025-01-26] MEDS: POTASSIUM CHLORIDE 20 MEQ TAB 40 MEQ PO (11:22)
== END 2025-01-26 12:45 | disposition home or self-care (01) ==
LOC: ED 12:46 → AC 12:48
PROVIDERS: Admitting Provider Hospitalist; Emergency Provider Emergency Medicine; Referring Provider Emergency Medicine; Visit Provider Hospitalist
DX: I48.0 Paroxysmal atrial fibrillation (principal); U07.1 COVID-19; R07.9 Chest pain, unspecified; E27.40 Unspecified adrenocortical insufficiency; D68.51 Activated protein C resistance; Z79.01 Long term (current) use of anticoagulants; Z86.718 Personal history of other venous thrombosis and embolism
CPT/HCPCS: 36415; 71275; 80048; 80053; 81001; 83690; 83880; 84484; 85025; 87633; 93005; 93010; 93306; 94640; 94760; 96360; 96361; 99284; G0378; J7613; Q9967

== ENCOUNTER 2025-02-15 17:49 | Emergency (ER) | payer OTHER, SELFPAY ==
[2025-01-25 13:36] VITALS: BMI 23.6
[2025-02-15] VITALS (10 sets, daily range): BP systolic 107–151; BP diastolic 61–70; PULSE 61–72; RESP 12–25; TEMP 36.7; O2SAT 96–99; BMI 23.6
--- NOTE | 2025-02-15 18:18 | DI.RAD.S_ITS ---
PROCEDURE: XR CHEST 1V INDICATIONS: Chest Pain TECHNIQUE: One view of the chest was acquired. COMPARISON: [facility], CR, XR CHEST 1 VIEW, 01/17/2025, 12:12. FINDINGS: Surgical changes and devices: None. Lungs and pleura: Lungs are clear. No pleural effusions or pneumothorax. Mediastinum: Mediastinal contours appear normal. Heart size is normal. Bones and chest wall: No suspicious bony lesions. Overlying soft tissues appear unremarkable. IMPRESSION: No acute cardiopulmonary abnormality is seen. Dictated by: Ricco Mann M.D. on 02/15/2025 at 19:12 Approved by: Ricco Mann M.D. on 02/15/2025 at 19:13
--- NOTE | 2025-02-15 18:18 | EKG_ITS ---
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
[2025-02-15 18:52] LABS: Add Manual Diff / Slide Review NO; Hematocrit 37.2 % (36-46); Hemoglobin 12.5 g/dL (12.0-16.0); INR 1.1 (0.9-1.3); Lymphocytes Absolute Auto 1600 /uL (1100-4500); Mean Corpuscular HGB Conc 33.5 % (30-36); Mean Corpuscular Hemoglobin 28.5 PG (26-34); Mean Corpuscular Volume 85.0 fL (80-100); Platelet Count 245 X10^3/uL (150-400); Prothrombin Time 12.2 SECONDS (9.4-12.5)
[2025-02-15 18:55] LABS: PTT Partial Thromboplastin Tim 30 SECONDS (25.1-36.5)
[2025-02-15 18:57] LABS: Alanine Aminotransferase 34 IU/L (<35); Albumin 4.7 g/dL (3.5-5.0); Albumin Globulin Ratio 1.4 (1.0-2.8); Alkaline Phosphatase 87 U/L (38-126); Blood Urea Nitrogen 20 mg/dL (7-17); Calcium 9.0 mg/dL (8.4-10.2); Carbon Dioxide 25 mmol/L (22-32); Chloride 107 mmol/L (98-107); Creatine Kinase 67 U/L (30-135); Estimated Glomerular Filt Rate > 60 mL/min (>60); Globulin 3.4 g/dL (1.7-4.1); Glucose 103 mg/dL (70-99); HEMOLYSIS 19 (0-50); Lipase 103 U/L (23-300); Magnesium 2.1 mg/dL (1.6-2.3); Potassium 4.2 mmol/L (3.4-5.1); Sodium 140 mmol/L (137-145); Total Protein 8.1 g/dL (6.3-8.2)
[2025-02-15 19:09] LABS: NT-proBNP (BNP-Adult 18+) < 20 pg/mL (<125); Troponin I < 0.012 ng/mL (0.01-0.034)
[2025-02-15 23:20] LABS: Lactate (Lactic Acid) 1.2 mmol/L (0.7-2.1)
[2025-02-15 23:33] LABS: Troponin I < 0.012 ng/mL (0.01-0.034)
[2025-02-16] VITALS (10 sets, daily range): BP systolic 113–139; BP diastolic 57–73; PULSE 58–68; RESP 14–23; O2SAT 96–100
--- NOTE | 2025-02-16 00:33 | ED.CHESTPAIN ---
HPI - Chest Pain General Chief Complaint: Chest Pain Stated Complaint: sob, chest pain Time Seen by Provider: 02/15/25 18:25 Source: patient Mode of arrival: Ambulatory History of Present Illness HPI narrative: 59-year-old female with history of adrenal insufficiency, factor 5 deficiency, prior pulmonary embolism, chronic anticoagulation on Xarelto, history of atrial fibrillation, [facility], awaiting cardiac stress testing in a few days Thursday, seen here 01/25/2025 with chest pain dyspnea complaint and had negative echocardiogram and CTA chest study but found to have COVID illness with minimal URI symptoms at that time. Admits to similar brief fast heart rate sensation tonight, intermittent shortness of breath, intermittent chest discomfort. Prior treatment with metoprolol, switched to diltiazem, more recently back on metoprolol 12.5 mg twice daily low dose. She is worried about PE despite taking her Xarelto. No known coronary artery disease, awaiting cardiac stress testing with her demurrage agent in a few days. Related Data Home Medications ?Medication ?Instructions ?Recorded ?Confirmed atorvastatin 40 mg tablet 40 mg PO DAILY 01/25/25 01/25/25 budesonide-formoterol HFA 160 2 puff inhalation BID 01/25/25 01/25/25 mcg-4.5 mcg/actuation aerosol inhaler hydrocortisone 5 mg tablet 5 mg PO .QD [place] 01/25/25 01/25/25 hydrocortisone 5 mg tablet 20 mg PO DAILY [place] 01/25/25 01/25/25 mirtazapine 7.5 mg tablet 7.5 mg PO ONCE PM 01/25/25 01/25/25 rivaroxaban 20 mg tablet (Xarelto) 20 mg PO DAILY 01/25/25 01/25/25 Previous Rx's ?Medication ?Instructions ?Recorded diltiazem HCl 120 mg 120 mg PO DAILY #30 caps 01/27/25 capsule,extended release 24 hr Allergies Allergy/AdvReac Type Severity Reaction Status Date / Time metronidazole (From Flagyl) Allergy Verified 01/25/25 07:47 Patient History Social History household members: spouse and significant other Smoking Status: Never smoker alcohol intake: never Smoking Status: Never smoker Exam Narrative Exam Narrative: GENERAL: Well-developed patient, in mild distress. HEAD: Atraumatic. Normocephalic. EYES: Pupils equal round and reactive. Extraocular motions intact. No scleral icterus. No injection or drainage. ENT: Nose without bleeding, purulent drainage. Throat without erythema, tonsillar hypertrophy or exudate. Airway patent. NECK: Trachea midline. Non tender CARDIOVASCULAR: Regular rate and rhythm without murmurs, gallops, or rubs. RESPIRATORY: Clear to auscultation. Breath sounds equal bilaterally. No wheezes, rales, or rhonchi. GASTROINTESTINAL: Abdomen soft, non-tender, nondistended. EXTREMITIES: No edema or joint tenderness. BACK: Nontender without deformity or crepitance. No flank tenderness. NEURO: AOx3. Motor functions grossly nonfocal. SKIN: No rash or erythema of visible areas Initial Vital Signs Initial Vital Signs: Vital Signs Temperature 98.1 F 02/15/25 18:11 Pulse Rate 68 02/15/25 18:11 Respiratory Rate 12 02/15/25 18:11 Blood Pressure 151/67 H 02/15/25 18:11 Pulse Oximetry 99 02/15/25 18:11 Oxygen Delivery Method Room Air 02/15/25 18:11 Scores HEART Score Heart Score history: Slightly Suspicious Heart Score EKG: Normal Heart Score Age: 45-64 years old Heart Score risk factors: 1-2 risk factors Heart Score troponin: < or = to normal limit Heart Score Total: 2 Course Orders Ordered: Discontinued Medications Aspirin (Aspirin 81 Mg Chew Tab) 324 mg PO NOW ONE Stop: 02/15/25 18:19 Last Admin: 02/15/25 21:36 Dose: Not Given Documented By: Sodium Chloride (Normal Saline 0.9%) 1,000 mls @ 500 mls/hr IV BOLUS ONE Stop: 02/16/25 02:56 Last Infusion: 02/16/25 04:02 Dose: Infused Documented By: Admin: 02/16/25 02:34 Dose: 500 mls/hr Documented By: GABRIELE Lorazepam (Lorazepam 2 Mg/Ml Inj) 1 mg IV NOW ONE Stop: 02/16/25 01:35 Last Admin: 02/16/25 01:45 Dose: 1 mg Documented By: GABRIELE Vital Signs Vital signs: Vital Signs - 8 hr 02/15/25 20:00 02/15/25 22:30 02/15/25 22:39 Pulse Rate 65 67 Respiratory Rate 15 25 H Blood Pressure 132/63 126/66 Pulse Oximetry 97 96 Oxygen Delivery Method Room Air 02/15/25 22:40 02/15/25 22:40 02/15/25 23:00 Pulse Rate 64 Respiratory Rate 17 Blood Pressure 114/61 117/70 Pulse Oximetry 96 Oxygen Delivery Method 02/15/25 23:00 02/15/25 23:30 02/15/25 23:30 Pulse Rate 61 62 Respiratory Rate 19 24 Blood Pressure 117/70 Pulse Oximetry 96 97 Oxygen Delivery Method 02/16/25 00:00 02/16/25 00:00 02/16/25 00:24 Pulse Rate 63 Respiratory Rate 19 Blood Pressure 136/73 137/67 Pulse Oximetry 98 Oxygen Delivery Method 02/16/25 00:24 02/16/25 00:30 02/16/25 00:30 Pulse Rate 64 68 Respiratory Rate 23 21 Blood Pressure 139/61 Pulse Oximetry 99 99 Oxygen Delivery Method Room Air Room Air 02/16/25 01:00 02/16/25 01:00 Pulse Rate 63 Respiratory Rate 17 Blood Pressure 129/71 Pulse Oximetry 98 Oxygen Delivery Method Room Air MDM - Chest Pain Lab Data Attestation: I reviewed the patient's lab results. Lab results narrative: White blood cell count 6400, hemoglobin 12.5, platelets adequate. Glucose 103. Slight increased BUN, normal creatinine, serum CO2, electrolytes. Slight AST elevation, other liver functions normal. Lipase normal. Troponin x2 sets negative/unmeasurable. 02/15/25 18:33 02/15/25 18:33 Labs: Lab Results 02/15/25 02/15/25 Range/Units 11:00 18:33 WBC 6.4 (4.5-11.0) X10^3/uL RBC 4.38 (4.0-5.2) X10^6/uL Hgb 12.5 (12.0-16.0) g/dL Hct 37.2 (36-46) % MCV 85.0 (80-100) fL MCH 28.5 (26-34) PG MCHC 33.5 (30-36) % RDW 13.6 (11.6-14.8) % Plt Count 245 (150-400) X10^3/uL Neut % (Auto) 61.0 (50-75) % Lymph % (Auto) 24.8 L (25-40) % [place] % (Auto) 11.8 (3-14) % Eos % (Auto) 1.7 L (2-4) % Baso % (Auto) 0.7 (0-2) % Neut # (Auto) 3900 (4507-2090) /uL Lymph # (Auto) 1600 (0255-0616) /uL [place] # (Auto) 800 (0-900) /uL Eos # (Auto) 100 (0-450) /uL Baso # (Auto) 0 (0-100) /uL PT 12.2 (9.4-12.5) SECONDS INR 1.1 (0.9-1.3) APTT 30 (25.1-36.5) SECONDS Sodium 140 (137-145) mmol/L Potassium 4.2 (3.4-5.1) mmol/L Chloride 107 (98-107) mmol/L Carbon Dioxide 25 (22-32) mmol/L BUN 20 H (7-17) mg/dL Creatinine 0.68 (0.52-1.04) mg/dL Estimated GFR > 60 (>60) mL/min BUN/Creatinine Ratio 29.4 H (6-22) Glucose 103 H (70-99) mg/dL Lactate 1.2 (0.7-2.1) mmol/L Calcium 9.0 (8.4-10.2) mg/dL Magnesium 2.1 (1.6-2.3) mg/dL Total Bilirubin 0.2 (0.2-1.3) mg/dL AST 38 H (14-36) IU/L ALT 34 (<35) IU/L Alkaline Phosphatase 87 (38-126) U/L Total Creatine Kinase 67 (30-135) U/L Troponin I < 0.012 < 0.012 (0.01-0.034) ng/mL NT-Pro-B Natriuret Pep < 20 (<125) pg/mL Total Protein 8.1 (6.3-8.2) g/dL Albumin 4.7 (3.5-5.0) g/dL Globulin 3.4 (1.7-4.1) g/dL Albumin/Globulin Ratio 1.4 (1.0-2.8) Lipase 103 (23-300) U/L Imaging Data Chest x-ray: Radiologist's Impression: [address] [address] XRay Report Signed Patient: Magda Sykes MR#: [id number] : 1965 Acct:[id number] Age/Sex: 59 / F Date of Service: 02/15/25 Loc: ED Accession Number: [id number] Procedure: XR chest 1V Ordering Provider: Jarvis Gilmore D.O. PROCEDURE: XR CHEST 1V INDICATIONS: Chest Pain TECHNIQUE: One view of the chest was acquired. COMPARISON: [facility], , XR CHEST 1 VIEW, 01/17/2025, 12:12. FINDINGS: Surgical changes and devices: None. Lungs and pleura: Lungs are clear. No pleural effusions or pneumothorax. Mediastinum: Mediastinal contours appear normal. Heart size is normal. Bones and chest wall: No suspicious bony lesions. Overlying soft tissues appear unremarkable. IMPRESSION: No acute cardiopulmonary abnormality is seen. Dictated by: Ricco Mann M.D. on 02/15/2025 at 19:12 Approved by: Ricco Mann M.D. on 02/15/2025 at 19:13 ECG Data Attestation: I personally reviewed and interpreted this ECG as follows: Interpretation: 1824, normal sinus rhythm with rate of 70, no obvious ST segment elevation or depression changes. FL 136, QRS 90, QTC 447. MDM Narrative Medical decision making narrative: 59-year-old female with history of factor 5 deficiency, prior PE, atrial fibrillation, previous Holter monitoring, awaiting cardiac stress test in 3 more days with [facility] cardiologists Dr. Mcguire, intermittent chest discomfort and dyspnea, about 3 weeks ago had COVID illness with workup including CTA chest that was negative and echocardiogram reassuring. Patient concern about blood clots to the lungs, feels similar. CTA Chest here a few weeks ago was reportedly negative for PE. Heart score 2. EKG normal sinus rhythm without obvious ischemic changes. Lab data: White blood cell count 6400, hemoglobin 12.5, platelets adequate. Glucose 103. Slight increased BUN, normal creatinine, serum CO2, electrolytes. Slight AST elevation, other liver functions normal. Lipase normal. Troponin x2 sets negative/unmeasurable. Feels anxious requested Rx via nursing, oral Ativan given. CTA chest PE protocol. Impressions: ?No pulmonary artery pulmonary embolism is seen in the main and lobar pulmonary arteries. Evaluation of the segmental and subsegmental pulmonary arteries limited due to motion and makes it difficult to exclude small pulmonary emboli. Trace pericardial effusion. Coronary artery calcifications. Minimal bibasilar atelectasis. See tele radiology report. CTA report results discussed, also had negative/unmeasurable troponin x2 sets. Feels less anxious after oral Ativan. Advised follow-up for cardiac stress test with her demurrage agent this Thursday as scheduled. DC home with . Return precautions discussed. Discharge Plan Departure Patient Disposition: Home Clinical Impression: Chest pain, Dyspnea Activity Restrictions/Additional Instructions: History of factor 5 deficiency, hypercoagulable state, on chronic oral Xarelto anticoagulation, prior history of blood clots to the lungs, awaiting cardiac stress testing on Thursday, with intermittent chest discomfort and shortness of breath. Chest x-ray unrevealing today. EKG and blood testing not suggestive of heart attack today. CT angiogram of the chest did not show evidence of large blood clots today. Follow up with your demurrage agent for stress testing on Thursday as planned. Return earlier to this/nearest emergency department for any change worsening symptoms or any concerns prior. Prescriptions: No Action atorvastatin 40 mg tablet 40 mg PO DAILY budesonide-formoterol 160-4.5 mcg/actuation HFA aerosol inhaler 2 puff INHALATION BID hydrocortisone 5 mg tablet 20 mg PO DAILY mirtazapine 7.5 mg tablet 7.5 mg PO ONCE PM Xarelto 20 mg tablet 20 mg PO DAILY hydrocortisone 5 mg tablet 5 mg PO .QD Rx Instructions: TAKE ONE TABLET BY MOUTH AT 1400 DAILY diltiazem HCl 120 mg capsule,extended release 24hr 120 mg PO DAILY Qty: 30 1RF Stand Alone Forms: Patient Portal/API
--- NOTE | 2025-02-16 00:56 | DI.CT.S_ITS ---
PROCEDURE: CT ANGIO CHEST PE PROTOCOL INDICATIONS: hx FactorV def, on Xarelto, feels like prior PE TECHNIQUE: After the administration of intravenous contrast, 2 mm thick sections acquired from the pulmonary apices to the posterior costophrenic angles. 3-dimensional maximum intensity projection (MIP) coronal and sagittal reformats were then acquired through the thorax. For radiation dose reduction, the following was used: automated exposure control, adjustment of mA and/or kV according to patient size. COMPARISON: [facility], CT, CT ANGIO CHEST PE PROTOCOL, 01/25/2025, 8:35. FINDINGS: Image quality: Diagnostic. Pulmonary arteries: Pulmonary arteries are normal in size, and demonstrate no intraluminal filling defects to suggest central pulmonary embolism. Lower Neck: No enlarged lymph nodes. Thyroid: No thyroid nodules which require sonographic follow up, per consensus guidelines. Axillae: No enlarged lymph nodes. Chest Wall: Unremarkable. Bones: No aggressive appearing bony lesions. Lungs and Pleura: No pneumothorax or pleural effusions. Dependent atelectasis in posterior aspect of bilateral lung nichols are seen. Calcified granuloma in posterior aspect of right upper lobe is seen. No consolidation or suspicious nodules. Heart: Heart size is borderline enlarged. Trace pericardial effusion. Thoracic Vessels: No aortic aneurysm. Mediastinum and Carlie: No enlarged lymph nodes. Esophagus: No wall thickening. No hiatal hernia. Upper Abdomen: Visualized upper abdomen solid organs and bowel loops appear normal. Gallbladder is surgically absent . IMPRESSION: 1. No pulmonary embolus. No thoracic aortic aneurysm or gross dissection. 2. Cardiomegaly and trace amount of pericardial effusion. 3 vessel coronary artery atherosclerotic calcifications. 3. No mediastinal or hilar lymphadenopathy. 4. Dependent atelectasis. No focal infiltrate, pleural effusion or pneumothorax. No significant discrepancies. Dictated by: Lopez Noland M.D. on 02/16/2025 at 8:01 Approved by: Lopez Noland M.D. on 02/16/2025 at 8:08
[2025-02-16] MEDS: SODIUM CHLORIDE 0.9% 1,000 ML 500 ML IV (02:34)
== END 2025-02-16 04:04 | disposition home or self-care (01) ==
PROVIDERS: Family Medicine; Emergency Provider Emergency Medicine
DX: R07.9 Chest pain, unspecified (principal); R06.00 Dyspnea, unspecified
CPT/HCPCS: 36415; 71045; 71275; 80053; 82550; 83605; 83690; 83735; 83880; 84484; 85025; 85610; 85730; 93005; 96361; 96374; 99284; J2060; J7030; Q9967